=== PATIENT | female | born 1970 | race Caucasian/White ===

== ENCOUNTER 2016-12-12 13:03 | Emergency (ER) | payer OTHER ==
[2016-12-12 17:11] LABS: HEMOGLOBIN 12.9 gm/dl (12.3-15.3); RED BLOOD COUNT 4.13 M/UL (4.00-5.10); WHITE BLOOD COUNT 11.4 K/UL (4.5-11.0)
[2016-12-12 17:29] LABS: BUN/CREATININE RATIO 13 (0-10)
== END 2016-12-12 19:20 | disposition home or self-care (01) ==
LOC: ER1 13:03
PROVIDERS: Physician Assistant Medical
DX: N39.0 Urinary tract infection, site not specified (principal); F17.210 Nicotine dependence, cigarettes, uncomplicated; Z90.49 Acquired absence of other specified parts of digestive tract; Z88.0 Allergy status to penicillin
CPT/HCPCS: 80053; 81001; 83605; 83690; 85025; 87077; 87086; 87186; 96374; 96375; 99284; J0696; J1885; J2270; J2405; J7030